=== PATIENT | female | born 1985 | race Caucasian/White ===

== ENCOUNTER 2018-07-24 06:34 | Day surgery (SDC) | payer OTHER ==
[2018-07-20 09:58] LABS: Absolute Lymphocytes (CBC) 1.2 K/uL (0.7-4.9); Absolute Monocytes 0.5 K/uL (0.1-1.3); Absolute Neutrophil 4.6 K/uL (1.8-8.0); Basophils % 0.9 % (0-1.3); Hematocrit 43.4 % (36.0-45.0); MCV 88.3 fL (80-100); MPV 8.4 fL (7.6-11.3); Monocytes % 7.3 % (3.3-12.3); RBC Red Blood Cell Count 4.91 M/uL (3.86-4.86)
[2018-07-20 10:05] LABS: Protime INR 0.88
[~2018-07-24 06:34] MED LIST: CLINDAMYCIN INJ 600 MG in NA CHLORIDE 0.9% 50 ML IV SCH
--- OUTSIDE RECORDS SUMMARY | 2018-07-24 06:38 | XMS REPORT ---
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 Problem Hypothyroidism E03.9 Active Problem Carpal tunnel syndrome of right G56.01 Active wrist Assessment Hypothyroidism E03.9 Active Problem Depression F32.9 Active Problem Libido, decreased R68.82 Active Medications No Known Medications Results Name Result Date Reference Range Unit Abnormality Flag Lipid Profile ----HDL Cholesterol 51 45362852 29-89 mg/dL ----LDL Cholesterol, 111 95035041 <130 Calculated ----Cholesterol/HDL Ratio 3.57 03730795 ----Cholesterol Level 182 70232756 <200 mg/dL ----Triglycerides Level 99 00350164 35-160 mg/dL T4 Free ----T4 Free 1.14 40945165 0.58-1.64 ng/dL CBC with Automated Diff ----Basophils % 0.6 39613189 0-1.3 % ----Eosinophils % 2.4 77313529 0-4.4 % ----Absolute Lymphocytes 1.7 18415315 0.7-4.9 (CBC) ----Absolute Neutrophil 5.4 30963357 1.8-8.0 ----Red Cell Distribution 13.4 53492434 12.1-15.2 % Width ----Absolute Eosinophils 0.2 41460473 0-0.5 ----Platelets 331 54929705 152-406 ----Absolute Monocytes 0.7 23395491 0.1-1.3 ----MCHC 34.0 41715523 32.0-36.0 g/dL ----MCH 29.6 52089199 27.0-35.0 pg ----MCV 87.0 95952699 80-100 fL ----Neutrophils % 67.1 87175613 41.7-73.7 % ----MPV 8.6 03764929 7.6-11.3 fL ----Monocytes % 8.3 95201980 3.3-12.3 % ----Lymphocytes % 21.6 05766921 15.3-44.8 % ----Absolute Basophils 0.1 96025962 0-0.5 ----White Blood Count 8.0 68025220 4.3-10.9 ----RBC Red Blood Cell 5.31 97503548 3.86-4.86 M/ul H Count ----Hemoglobin 15.7 60298803 12.0-15.0 g/dL H ----Hematocrit 46.2 67138249 36.0-45.0 % H Comprehensive Metabolic Panel ----Creatinine 0.84 20180320 0.44-1.00 mg/dL ----BUN Blood Urea 16 20180320 6-20 mg/dL Nitrogen ----AST/SGOT 16 20180320 10-42 [iU]/L ----Glomerular Filtration 78 20180320 =/>90 mL L Rate ----Alkaline Phosphatase 49 20180320 42-121 [iU]/L ----Bilirubin Total 0.7 29696196 0.3-1.2 mg/dL ----ALT/SGPT 17 20180320 10-60 [iU]/L ----Albumin 4.3 12745100 3.2-5.5 g/dL ----Bicarbonate 26 20180320 21-31 meq/L ----Globulin 3.0 18518038 2.3-3.5 g/dL ----Glucose Level 78 20180320 65-120 mg/dL ----Potassium 4.1 48680919 3.6-5.0 meq/L ----Calcium Level 9.8 37701910 8.5-10.5 mg/dL ----Protein, Serum Total 7.3 36225634 6.0-8.3 g/dL ----Chloride Level 104 20180320 101-111 meq/L ----Sodium Level 137 20180320 135-145 meq/L ----Albumin/Globulin 1.4 20180320 1.1-1.8 Ratio TSH Thyroid Stimulating Hormone ----Thyroid Stimulating 0.62 20180320 0.34-5.60 [iU]/L Hormone Urinalysis W/Microscopic ----Urine Specific >=1.030 20180320 1.005-1.030 Boomer ----Urine Appearance CLEAR 20180320 ----Urine Bilirubin NEGATIVE 00563933 NEG ----Urine Glucose NEGATIVE 20180320 NEG ----Urine Blood NEGATIVE 20180320 NEG ----Urine Ketones TRACE 20180320 NEG ----Urine Protein 1+ 20180320 NEG AA ----Urine pH 6.5 10715010 5.0-7.0 ----Urine Urobilinogen 1.0 61864021 0.2-1.0 ----Urine Leukocyte NEGATIVE 20180320 NEG Esterase ----Urine Nitrate NEGATIVE 20180320 NEG ----Urine RBC NONE SEEN 20180320 NONE SEEN ----Urine WBC 5-10 74444374 <5 AA ----Sqamous Epithelial <5 34061227 NONE SEEN ----Urine Color DK YELLOW 20180320 ----Urine Bacteria <20 24205114 <20 ----Urine Culture Reflex NOT NEEDED [id number] Order Summary Purpose eClinicalWorks Submission
--- OUTSIDE RECORDS SUMMARY | 2018-07-24 06:38 | XMS REPORT ---
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 with ASCUS favoring dysplasia Problem Hypothyroidism E03.9 Active Problem Carpal tunnel syndrome of right G56.01 Active wrist Assessment Carpal tunnel syndrome of right G56.01 Active wrist Problem Depression F32.9 Active Problem Libido, decreased R68.82 Active Medications Medication Code Code Instructions Start End Status Dosage System Date Date Phentermine HCl [facility] 24874409642 37.5 MG Orally Active 1 tablet Once a day Trokendi XR [facility] 06273915414 50 MG Orally Active 1 capsule Once a day Duloxetine HCl [facility] 47145501231 60 MG Orally Active 1 capsule Once a day Viorele [facility] 27232924940 0.15-0.02/0.01 Active 1 tablet MG (23/02) Orally Once a day Duexis [facility] 64599848555 800-26.6 MG Active 1 tablet Orally Three times a day PRN Pain Metoprolol [facility] 96512398024 50 MG Orally Active 1 tablet Tartrate Twice a day with food Synthroid [facility] 48335051640 88 MCG Orally Active 1 tablet Once a day on an empty stomach in the morning Results No Known Results Summary Purpose eClinicalWorks Submission
--- OUTSIDE RECORDS SUMMARY | 2018-07-24 06:38 | XMS REPORT ---
:1985 Author Organization eClinicalWorks Care Team Providers Name Role Phone Hdz, Ricco Provider Role Unavailable Allergies, Adverse Reactions, Alerts Substance Reaction Event Type Augmentin Info Not Available Drug Allergy Sulfa Info Not Available Drug Allergy Mobic Info Not Available Drug Allergy Amoxicillin Info Not Available Drug Allergy Problems Problem Type Condition Code Onset Dates [...] Status Dosage System Date Date Phentermine HCl [facility] 79043250815 37.5 MG Orally Active 1 tablet Once a day Metoprolol [facility] 96226943609 50 MG Orally Active 1 tablet Tartrate Twice a day with food Synthroid [facility] 29751179644 88 MCG Orally Active 1 tablet Once a day on an empty stomach in the morning Trokendi XR [facility] 74948857898 50 MG Orally Active 1 capsule Once a day Duloxetine HCl [facility] 49751783318 60 MG Orally Active 1 capsule Once a day Viorele [facility] 02996517866 0.15-0.02/0.01 Active 1 tablet MG (/) Orally Once a day Duexis [facility] 24197607173 800-26.6 MG JanuaryFebruary 28, Active 1 tablet Orally Three 2017 times a day PRN Pain Results No Known Results Summary Purpose eClinicalWorks Submission
--- OUTSIDE RECORDS SUMMARY | 2018-07-24 06:38 | XMS REPORT ---
:1985 Author Organization eClinicalWorks Care Team Providers Name Role Phone Wilder Ricco Provider Role Unavailable Allergies, Adverse Reactions, Alerts Substance Reaction Event Type Mobic Info Not Available Drug Allergy Amoxicillin Info Not Available Drug Allergy Problems Problem Type Condition Code Onset Dates Condition Status Assessment Hypothyroidism E03.9 Active Assessment Carpal tunnel syndrome of right G56.01 Active wrist Assessment Benign essential HTN I10 Active Assessment Adult BMI 27.0-27.9 kg/sq m Z68.27 Active Assessment Depression F32.9 Active Problem Benign essential HTN I10 Active Problem Pap smear abnormality of cervix 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 with ASCUS favoring dysplasia Problem Hypothyroidism E03.9 Active Problem Carpal tunnel syndrome of right G56.01 Active wrist Problem Depression F32.9 Active Problem Libido, decreased R68.82 Active Medications Medication Code Code Instructions Start End Status Dosage System Date Date Viorele [facility] 69142262258 0.15-0.02/0.01 Active 1 tablet MG (23/02) Orally Once a day Trokendi XR [facility] 09013095523 50 MG Orally Active 1 capsule Once a day Duexis [facility] 18568009167 800-26.6 MG Active 1 tablet Orally Three times a day PRN Pain Duexis [facility] 43212600331 800-26.6 MG Active TAKE 1 TABLET BY MOUTH THREE TIMES DAILY NEEDED FOR PAIN Phentermine HCl [facility] 76395895266 37.5 MG Orally Active 1 tablet Once a day Metoprolol [facility] 06397828825 50 MG Orally Active 1 tablet Tartrate Twice a day with food Synthroid [facility] 90031848269 88 MCG Orally Active 1 tablet Once a day on an empty stomach in the morning Duloxetine HCl [facility] 86265972153 60 MG Orally Active 1 capsule Once a day Results No Known Results Summary Purpose eClinicalWorks Submission
--- OUTSIDE RECORDS SUMMARY | 2018-07-24 06:38 | XMS REPORT ---
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
--- OUTSIDE RECORDS SUMMARY | 2018-07-24 06:38 | XMS REPORT ---
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 Problem Hypothyroidism E03.9 Active Problem Carpal tunnel syndrome of right G56.01 Active wrist Problem Depression F32.9 Active Problem Libido, decreased R68.82 Active Medications Medication Code Code Instructions Start End Status Dosage System Date Date Synthroid [facility] 42759389513 88 MCG Orally Active 1 tablet Once a day on an empty stomach in the morning Duexis [facility] 54939431751 800-26.6 MG Active 1 tablet Orally Three times a day PRN Pain Duloxetine HCl [facility] 67343604000 60 MG Orally Active 1 capsule Once a day Metoprolol [facility] 67588862325 50 MG Orally Active 1 tablet Tartrate Twice a day with food Viorele [facility] 51501000256 0.15-0.02/0.01 Active 1 tablet MG (23/02) Orally Once a day Trokendi XR [facility] 40010097178 50 MG Orally Active 1 capsule Once a day Results No Known Results Summary Purpose eClinicalWorks Submission
--- OUTSIDE RECORDS SUMMARY | 2018-07-24 06:39 | XMS REPORT ---
[...] Instructions Start End Status Dosage System Date [facility] 75572848467 0.15-0.02/0.01 Active 1 tablet MG (23/02) Orally Once a day Duloxetine HCl [facility] 26148471994 60 MG Orally Active 1 capsule Once a day Metoprolol [facility] 86366177560 50 MG Orally Active 1 tablet Tartrate Twice a day with food Trokendi XR [facility] 11989227137 50 MG Orally Active 1 capsule Once a day Duexis [facility] 67830827340 800-26.6 MG Active 1 tablet Orally Three times a day PRN Pain Tylenol with [facility] 55060878040 300-30 MG Orally Oct 11, Active 1 tablet Codeine #3 every 6 hrs 2018 as needed Synthroid [facility] 05276495658 88 MCG Orally Active 1 tablet Once a day on an empty stomach in the morning Results No Known Results Summary Purpose eClinicalWorks Submission
[2018-07-24] MEDS ORDERED: Ringers Lactate 1,000 ML IV ONE (07:00)
[2018-07-24] MEDS ORDERED: BUPIVACAINE 0.25% PF 10 ML VIAL ONE (07:11)
[2018-07-24] MEDS ORDERED: PROPOFOL 200 MG/20 ML VIAL IV ONE (07:12)
[2018-07-24] MEDS ORDERED: FENTANYL CITR 100 MCG/2 ML ONE (07:12)
[2018-07-24] MEDS ORDERED: MIDAZOLAM HCL 2 MG/2 ML INJ ONE (07:12)
[2018-07-24] MEDS ORDERED: LIDOCAINE 1% MPF 5 ML VIAL ONE (07:12)
[2018-07-24] MEDS ORDERED: DEXAMETHASONE 10 MG/ML VIAL ONE (07:46)
[2018-07-24] MEDS ORDERED: KETOROLAC 30 MG/ML INJ ONE (08:05)
[2018-07-24] MEDS ORDERED: ONDANSETRON HCL 40 MG/20 ML VIAL ONE (08:06)
--- NOTE | 2018-07-24 08:19 | P.BOP ---
Preoperative diagnosis: right carpal tunnel syndrome Postoperative diagnosis: same Primary procedure: right carpal tunnel syndrome Sorting Machine Attendant: NONE,NONE Estimated blood loss: 3 cc Specimen: none Findings: see dictation Anesthesia: General Complications: None Implants: none Fluids & blood products: per anesthesia; TT: 17 mins @ 250 mmHg Transferred to: Recovery Room Condition: Good
[2018-07-24] MEDS ORDERED: MEPERIDINE HCL 25 MG/0.5 ML ONE (08:46)
[2018-07-24] MEDS ORDERED: CODEINE 30MG/APAP 300MG TAB ONE (09:30)
[2018-07-24 10:48] VITALS: BP 117/83; TEMP 97; O2SAT 97
--- NOTE | 2018-07-24 21:28 | OP ---
Date of Procedure: 07/24/2018 Surgeon: Flash Andrade MD Preoperative Diagnosis: Right carpal tunnel syndrome. Postoperative Diagnosis: Right carpal tunnel syndrome. Procedure Performed: Right carpal tunnel release. Anesthesia: General LMA. Fluids: Per Anesthesia record. Ebl: Less than 5 cc. Tourniquet Time: 17 minutes at 250 mmHg. Complications: None. Implants: None. Indication For Procedure: Priya is a 32-year-old female who presented in my clinic with signs and symptoms and EMG findings consistent with a right carpal tunnel syndrome. The patient had failed conservative treatment measures. I discussed with the patient at length risks and benefits associated with operative and nonoperative treatment. She expressed understanding and elected to proceed with operative treatment. Description Of Procedure: After informed consent was obtained, the patient was identified in the preoperative holding area. The right upper extremity was marked. The patient was then taken back to the operating room, transferred to the operating table in a supine fashion, and placed under general LMA anesthesia. The right upper extremity was then prepped and draped in usual sterile fashion. A time-out was initiated. The correct patient and procedure were confirmed and identified. The patient did receive her preoperative prophylactic antibiotics. The right upper extremity was then exsanguinated using an Esmarch and tourniquet was inflated to 250 mmHg. Approximately, a 3 cm longitudinal incision was made just ulnar to the thenar crease. Dissection was then taken down to the palmar fascia using tenotomy. A Zebulon elevator was then placed deep to the palmar fascia to protect the median nerve, and a 15- blade was then used to release the palmar fascia as well as the transverse carpal ligament in a distal to proximal fashion. The Zebulon elevator was underneath the fascia and ligament at all times to protect the median nerve. After the ligament was completely release, Metzenbaums were then used to ensure that no fascial bands remained. There were some hyperemic changes of the median nerve noted after the ligament was completely released. The wound was then irrigated thoroughly with normal saline. The skin was then approximated using a 5-0 Prolene. Sterile dressings were applied. Tourniquet was let down. The patient was awakened and transferred to PACU in stable condition. Postoperative Plan: She will work on gentle [id number] exercises as tolerated. She will avoid heavy lifting, and she will follow up in my clinic in 1 week for wound check and suture removal. HUSAM/JULIANNE Voice ID: [id number] Report ID: [id number] MTDD
== END 2018-07-24 10:40 | disposition home or self-care (01) ==
LOC: OR 06:34
PROVIDERS: ATTEND Orthopaedic Surgery Sports Medicine
PROC: 01N50ZZ Release Median Nerve, Open Approach (ICD-10-PCS; principal; 2018-07-24 07:30)
DX: G56.01 Carpal tunnel syndrome, right upper limb (principal); I10 Essential (primary) hypertension; E03.9 Hypothyroidism, unspecified; F32.9 Major depressive disorder, single episode, unspecified; Z88.2 Allergy status to sulfonamides; Z88.8 Allergy status to other drugs, medicaments and biological substances; Z90.49 Acquired absence of other specified parts of digestive tract; Z82.49 Family history of ischemic heart disease and other diseases of the circulatory system
CPT/HCPCS: 36415; 80048; 81025; 85025; 85610; 93005; J1100; J2175; J2250; J2405; J3010